=== PATIENT | male | born 1975 | race Caucasian/White ===

== ENCOUNTER 2016-08-28 18:02 | Emergency (ER) | payer SELFPAY ==
[2016-08-28 18:39] LABS: BASOPHILS % (AUTO) 1 % (0-3); EOSINOPHILS % (AUTO) 3 % (0-9); HEMATOCRIT 47 % (39-53); MEAN CORPUSCULAR HGB CONC 35.2 gm/dl (32.0-36.0); MEAN CORPUSCULAR VOLUME 91 fL (80-100); NEUTROPHILS % (AUTO) 60.3 % (37-80)
[2016-08-28] MEDS ORDERED: LABETALOL HYDROCHLORIDE 5 MG/ML SOL IV ONE ×2 (18:39→18:41)
[2016-08-28 18:47] LABS: CALCIUM 8.9 mg/dl (8.5-10.1); POTASSIUM 4.2 mMol/L (3.5-5.1)
[2016-08-28 19:10] VITALS: TEMP 99.5
[2016-08-28] MEDS ORDERED: HYDRALAZINE HYDROCHLORIDE 20 MG/ML SOL IV PRN (19:10)
[2016-08-28] MEDS ORDERED: HYDRALAZINE HYDROCHLORIDE 20 MG/ML SOL ONE (19:16)
[2016-08-28 20:32] VITALS: BP 143/88; PULSE 80; RESP 16; O2SAT 96
== END 2016-08-28 20:00 | disposition home or self-care (01) | DRG 305 ==
LOC: ED 18:02
DX: I16.9 Hypertensive crisis, unspecified (principal); F41.9 Anxiety disorder, unspecified
CPT/HCPCS: 80048; 84484; 85025; 93005; 99284; J0360